=== PATIENT | female | born 1960 | race Caucasian/White ===

== ENCOUNTER 2020-02-28 10:55 | Emergency (ER) | payer BC ==
--- NOTE | 2020-02-28 11:58 | ED ---
Nausea/Vomiting/Diarrhea HPI - General Chief complaint: Nausea/Vomiting/Diarrhea Stated complaint: Diarrhea, Fever Time Seen by Provider: 02/28/20 11:03 Source: patient Mode of arrival: ambulatory Limitations: no limitations - History of Present Illness Initial comments: Patient is a 59-year-old female presenting to the emergency Department with complaints of diarrhea 2 days. Patient states she went to her PCPs office today and when she arrived there she had a temperature however she was just outside for a long time. Patient states she does not believe she had a fever at all last few days. She states her doctor was concerned that she may have Covid and wanted her to go into the ER for testing. She denies any fever, chills, chest pain, shortness of breath, cough. She denies any nasal congestion, vomiting. She denies any urinary complaints. She states she is did not drink anything today but has been able to tolerate oral intake. She denies any recent antibiotic use. She denies any abdominal pain, she did have some cramping last few days but she states her diarrhea is improving already. She has no further complaints at this time. Upon arrival to the ER, her vital signs are stable, afebrile. - Related Data Home Medications Medication Instructions Recorded Confirmed Budesonide/Formoterol Fumarate 2 puff INHALATION RT-BID 02/28/20 02/28/20 [Symbicort 160-4.5 Mcg Inhaler] Lisinopril [Zestril] 20 mg PO DAILY 02/28/20 02/28/20 Allergies Allergy/AdvReac Type Severity Reaction Status Date / Time codeine AdvReac Nausea & Verified 02/28/20 11:56 Vomiting Review of Systems ROS Statement: Those systems with pertinent positive or pertinent negative responses have been documented in the HPI. ROS Other: All systems not noted in ROS Statement are negative. Past Medical History Past Medical History: Asthma, Hypertension History of Any Multi-Drug Resistant Organisms: None Reported Past Surgical History: No Surgical Hx Reported Past Psychological History: No Psychological Hx Reported Smoking Status: Never smoker Past Alcohol Use History: None Reported Past Drug Use History: None Reported General Exam - General Exam Comments Initial Comments: GENERAL: Well-appearing, well-nourished and in no acute distress. HEAD: Atraumatic, normocephalic. EYES: Pupils equal round and reactive to light, extraocular movements intact, sclera anicteric, conjunctiva are normal. ENT: TMs normal, nares patent, oropharynx clear without exudates. Moist mucous membranes. NECK: Normal range of motion, supple without lymphadenopathy or JVD. LUNGS: Breath sounds clear to auscultation bilaterally and equal. No wheezes rales or rhonchi. HEART: Regular rate and rhythm without murmurs, rubs or gallops. ABDOMEN: Soft, nontender, normoactive bowel sounds. No guarding, no rebound. No masses appreciated. : Deferred EXTREMITIES: Normal range of motion, no pitting or edema. No clubbing or cyanosis. NEUROLOGICAL: Normal speech, normal gait. PSYCH: Normal mood, normal affect. SKIN: Warm, Dry, normal turgor, no rashes or lesions noted. Limitations: no limitations Course Vital Signs 02/28/20 10:56 Temperature 98.3 F Pulse Rate 77 Respiratory 18 Rate Blood Pressure 107/69 O2 Sat by Pulse 96 Oximetry Medical Decision Making - Medical Decision Making Patient is a 59-year-old female here for diarrhea 2 days, sent by her PCP for Covid testing. She had a fever when she went to the doctor's office for her when she came here she did not. She thinks it was because of the heat. Patient's exam is unremarkable, no abdominal tenderness. UA shows no signs of infection, no severe dehydration. Patient is tolerating oral intake. Covid testing is pending at this time. Patient is stable for discharge. Discussed the patient is most likely viral in nature, discussed increasing oral intake, bland foods. She may follow up with her PCP. Patient is agreeable with this plan of care. She is stable for discharge. Return parameters discussed with the patient she verbalized understanding. - Lab Data Lab Results 02/28/20 Range/Units 12:23 Urine Color Yellow Urine Appearance Clear (Clear) Urine pH 5.5 (5.0-8.0) Ur Specific [place] 1.024 (1.001-1.035) Urine Protein Negative (Negative) Urine Glucose (UA) Negative (Negative) Urine Ketones 1+ H (Negative) Urine Blood Small H (Negative) Urine Nitrite Negative (Negative) Urine Bilirubin Negative (Negative) Urine Urobilinogen <2.0 (<2.0) mg/dL Ur Leukocyte Esterase Negative (Negative) Urine RBC 1 (0-5) /hpf Urine WBC 2 (0-5) /hpf Ur Squamous Epith Cells 6 H (0-4) /hpf Urine Mucus Occasional H (None) /hpf Disposition Clinical Impression: Diarrhea Disposition: HOME SELF-CARE Condition: Stable Instructions (If sedation given, give patient instructions): Acute Diarrhea (ED) Additional Instructions: Please return to the Emergency Department if symptoms worsen or any other concerns. Increase oral intake, start with bland foods. Follow-up with PCP. Your COVID test is pending. Is patient prescribed a controlled substance at d/c from ED?: No Referrals: Abel Blackwell DO [Primary Care Provider] - 1-2 days
[2020-02-28 12:53] LABS: Appearance,Urine Clear (Clear); Bilirubin,Urine Negative (Negative); Blood,Urine Small (Negative); Color,Urine Yellow; Glucose,Urine (UA) Negative (Negative); Ketones,Urine 1+ (Negative); Leukocyte Esterase,Urine Negative (Negative); Mucus,Urine Occasional /hpf; Nitrite,Urine Negative (Negative); PH, Urine 5.5 (5.0-8.0); Protein,Urine Negative (Negative); RBC,Urine 1 /hpf (0-5); Specific Gravity,Urine 1.024 (1.001-1.035); Squamous Epithelial Cell,Urine 6 /hpf (0-4); Urobilinogen,Urine <2.0 mg/dL (<2.0); WBC,Urine 2 /hpf (0-5)
[2020-02-29 10:05] VITALS: BP 118/93; PULSE 71; RESP 16; TEMP 98.3
== END 2020-02-28 13:04 | disposition home or self-care (01) ==
LOC: EC 10:55
DX: R19.7 Diarrhea, unspecified (principal); J45.909 Unspecified asthma, uncomplicated; I10 Essential (primary) hypertension; Z79.51 Long term (current) use of inhaled steroids; Z79.899 Other long term (current) drug therapy; Z88.5 Allergy status to narcotic agent; Z20.828 Contact with and (suspected) exposure to other viral communicable diseases
CPT/HCPCS: 81001; 99284